=== PATIENT | female | born 1955 | race Hispanic/Latino ===

== ENCOUNTER → 2018-08-13 | Day surgery (SDC) | payer OTHER ==
[~2018-08-13] MED LIST: AUGMENTIN 875-1 EACH PO; B&O 60MG R/S 60 MG SUPP PR ONE; CEFTRIAXONE SOD 1 GM/NS 50 ML 50 ML IV ONE; DEXAMETHASONE SOD PHOS INJ 4 MG/ML VIAL ONE; FENTANYL CITRATE/PF 100MCG/2 ML INJ ONE; IOPAMIDOL 610MG/1ML 300 MG/ML VIAL IV ONE; LIDOCAINE HCL 2% LOCAL INJ 5 ML SDV VIAL INJ ONE; LISINOPRIL10 MG PO; MACRODANTIN100 MG PO; MIDAZOLAM HCL 2 MG/2 ML VIAL ONE; ONDANSETRON HCL INJ 2MG/ML 2ML 2 MG/ML VIAL ONE; PANTOPRAZOLE SO40 MG PO; PRAVASTATIN SOD80 MG PO; PROPOFOL IV EMULSION 10 MG/ML 20 ML VIAL ONE; SERTRALINE HCL25 MG PO; SEVOFLURANE INHAL SOLN 250 ML PEN BTL ONE
--- OUTSIDE RECORDS SUMMARY | 2018-08-13 07:59 | XMS REPORT ---
Author [facility] Address Unknown Phone Unavailable Care Team Providers Care Grinder Dresser Name Role Phone Unavailable Unavailable Payers Payer Name Policy Type Policy Number Effective Date Expiration Date Problems This patient has no known problems. Allergies, Adverse Reactions, Alerts Allergy Name Allergy Type Status Severity Reaction(s) Onset Date Inactive Date Treating Clinician Comments No Known Allergies DA Active U 2018-05-17 00:00:00 Medications This patient has no known medications. Results Test Description Test Time Test Comments Text Results Atomic Results Result Comments - CT ABD PELVIS W/CONT 2018-05-17 19:08:00 Name: KATHYA BEE [facility] : 1955 Age/S: 62 / F [address] [place] [address] Blvd Unit #: [id number] Loc: [place] [address] Phys: Jada Chow DO Acct: [id number] Dis Date: Status: REG ER PHONE #: [phone] Exam Date: 05/17/2018 181 FAX #: [phone] Reason: hematuria and abdominal pain EXAMS: CPT CODE: [id number] CT ABD PELVIS W/CONT 92269 PROCEDURE: CT ABDOMEN AND PELVIS WITH CONTRAST INDICATION: Hematuria. Abdominal pain. COMPARISON: None. TECHNIQUE: Helical imaging was performed diaphragm through the symphysis with multiplanar reconstructions. IV CONTRAST: 100 mL Isovue- 300. GI CONTRAST: None CT imaging performed at this location utilizes radiation dose optimization techniques which include one or more of the following: -Automated exposure control -Adjustment of the mA and/or kV according to patient size -Use of iterative reconstruction technique CT Radiation Dose DLP 174.94 mGy-cm Limitations: Motion artifact limiting assessment of abdominal contents. FINDINGS: LOWER CHEST: Slight motion limited assessment. Calcified granuloma lingula. Lung bases are otherwise clear. LIVER: Motion limited assessment. Diminished attenuation with sparing adjacent to gallbladder fossa. No focal lesion. The portal venous system is patent. GALLBLADDER: Motion assessment without abnormality demonstrated. SPLEEN: Normal. PANCREAS: Normal. ADRENALS: Normal. KIDNEYS: Motion limited assessment. No urinary calculi. No hydronephrosis or perinephric edema. No suspicious renal masses. The renal veins are patent. BOWEL: Stomach is unremarkable. Motion assessment of bowel without acute abnormality demonstrated. Gas and fecal material scattered throughout colon. No pathologic wall thickening. APPENDIX: Normal. PAGE 1 Signed Report (CONTINUED) Name: KATHYA BEE [facility] : 1955 Age/S: 62 / F [address] [place], [place] [address]vd Unit #: [id number] Loc: [place] [address] Phys: Jada Chow DO Acct: [id number] Dis Date: Status: REG ER PHONE #: [phone] Exam Date: 05/17/20181815 FAX #: [phone] Reason: hematuria and abdominal pain EXAMS: CPT CODE: [id number] CT ABD PELVIS W/CONT 35981 <Continued> PERITONEUM: No free intraperitoneal fluid or air. RETROPERITONEUM: No adenopathy. Atherosclerosis aorta and branch vessels. No aneurysm. PELVIS: No pelvic mass. Urinary bladder is contracted with circumferential bladder wall thickening.. MUSCULOSKELETAL: Scoliosis. Multilevel degenerative changes spine. No acute skeletal abnormality. IMPRESSION: 1. Circumferential bladder wall thickening. Muscular hypertrophy and cystitis in the differential. 2. Diminished attenuation of liver compatible hepatic steatosis. SL: WR1-H at 1908 Reported and signed by: Manny Fernandez M.D. CC: Jada Chow DO Technologist:Janie Van RT(R) CTDI: DLP: Trnscb Date/Time: 05/17/2018 (1907) Flores Orig Print D/T: S: 05/17/2018 (1910) CTDI: DLP: PAGE 2 Signed Report PROTHROMBIN TIME 2018-05-17 17:36:00 PROTHROMBIN TIME PATIENT (test code=PTP) 11.5 SECONDS 9.3-12.9 INTERNATIONAL NORMAL RATIO (test code=INR) 1.0 0.8-1.2 TARGET INR BY INDICATION Indication INR1. Prophylaxis of venous thrombosis 2.0 - 3.0 (orthopedic surgery), Prophylaxis of venous thrombosis (other than high-risk surgery), Treatment of Deep Vein Thrombosis/Pulmonary Embolism, Prevention of systemic embolism - Tissue heart valves, Acute Myocardial Infarction (to prevent systemic embolism), Valvular heart disease, Atrial Fibrillation, Bileaflet mechanical valve in aortic position.2. Mechanical prosthetic valves (high risk), 2.5 - 3.5 Presence of Lupus Anticoagulant or Antiphospholipid Antibodies, Prevention of systemic embolism - Acute Myocardial Infarction (to prevent recurrent infarct). COMPREHENSIVE METABOLIC [id number] 17:32:00* Test Item Value Reference Range Comments SODIUM (test code=NA) 139 mEq/L 134-147 POTASSIUM (test code=K) 3.5 mEq/L 3.4-5.0 CHLORIDE (test code=CL) 106 mEq/L 100-108 CARBON DIOXIDE (test code=CO2) 29 mEq/L 21-33 ANION GAP (test code=GAP) 8 0-20 GLUCOSE (test code=GLU) 90 mg/dL 70-110 BLOOD UREA NITROGEN (test code=BUN) 14 mg/dL 7-18 GLOMERULAR FILTRATION RATE (test code=GFR) 55.8 80-90 Units of measure=ml/min/1.73 m2 CREATININE (test code=CREAT) 1.0 mg/dL 0.6-1.3 TOTAL PROTEIN (test code=PROT) 8.5 g/dL 6.4-8.2 ALBUMIN (test code=ALB) 4.40 g/dL 3.4-5.0 CALCIUM (test code=CA) 9.1 mg/dL 8.0-10.5 BILIRUBIN TOTAL (test code=BILT) 0.60 mg/dL 0.0-1.0 SGOT/AST (test code=AST) 29 IUnit/L 15-37 SGPT/ALT (test code=ALT) 57 IUnit/L 15-65 ALKALINE PHOSPHATASE TOTAL (test code=ALKP) 128 IUnit/L 20-125 [id number] 17:32:00* Test Item Value Reference Range Comments LIPASE (test code=LIP) 322 IUnit/L 73-393 [id number] 17:32:00* Test Item Value Reference Range Comments TROPONIN-I (test code=TROPI) < 0.015 ng/mL 0.000-0.045 Negative: <=0.045 Positive: >=0.046 Correlation with serial results, other cardiac markers andclinical findings is necessary to determine the clinicalsignificance of this result. Results using different methodologies should not be comparedto one another as quantitative results may vary by method. CBC W/AUTO [id number] 17:24:00* Test Item Value Reference Range Comments WHITE BLOOD CELL (test code=WBC) 12.55 x10 3/uL 4.5-11.0 RED BLOOD CELL (test code=RBC) 4.40 x10 6/uL 3.54-5.02 HEMOGLOBIN (test code=HGB) 14.6 g/dL 11.0-15.0 HEMATOCRIT (test code=HCT) 42.2 % 33.0-45.0 MEAN CELL VOLUME (test code=MCV) 95.9 fL 81.0-99.0 MEAN CELL HGB (test code=MCH) 33.2 pg 27.0-33.0 MEAN CELL HGB CONCETRATION (test code=MCHC) 34.6 g/dL 33.0-37.0 RED CELL DISTRIBUTION WIDTH CV (test code=RDW) 11.9 % 11.5-14.5 RED CELL DISTRIBUTION WIDTH SD (test code=RDW-SD) 41.6 fL 37.0-54.0 PLATELET COUNT (test code=PLT) 174 x10 3/uL 150-400 MEAN PLATELET VOLUME (test code=MPV) 11.9 fL 7.0-9.0 NEUTROPHIL % (test code=NT%) 76.4 % 56.0-77.0 IMMATURE GRANULOCYTE % (test code=IG%) 0.3 % 0.0-2.0 LYMPHOCYTE % (test code=LY%) 14.4 % 14.0-32.0 MONOCYTE % (test code=MO%) 8.0 % 4.8-9.0 EOSINOPHIL % (test code=EO%) 0.6 % 0.3-3.7 BASOPHIL % (test code=BA%) 0.3 % 0.0-2.0 NUCLEATED RBC % (test code=NRBC%) 0.0 % 0-0 NEUTROPHIL # (test code=NT#) 9.58 x10 3/uL 2.0-7.6 IMMATURE GRANULOCYTE # (test code=IG#) 0.04 x10 3/uL 0.00-0.03 LYMPHOCYTE # (test code=LY#) 1.81 x10 3/uL 1.0-3.8 MONOCYTE # (test code=MO#) 1.01 x10 3/uL 0.1-0.8 EOSINOPHIL # (test code=EO#) 0.07 x10 3/uL 0.0-0.2 BASOPHIL # (test code=BA#) 0.04 x10 3/uL 0.0-0.2 NUCLEATED RBC # (test code=NRBC#) 0.00 x10 3/uL 0.0-0.1 MANUAL DIFF REQUIRED (test code=MDIFF) NO URINALYSIS [id number] 16:41:00* Test Item Value Reference Range Comments UA COLOR (test code=COLU) RED YEL/STRAW UA APPEARANCE (test code=APPU) CLOUDY CLEAR UA GLUCOSE DIPSTICK (test code=DGLUU) 3+ NEGATIVE UA BILIRUBIN DIPSTICK (test code=BILU) NEGATIVE NEGATIVE UA KETONE DIPSTICK (test code=KETU) NEGATIVE NEGATIVE UA SPECIFIC GRAVITY (test code=SGU) 1.012 1.005-1.030 UA BLOOD DIPSTICK (test code=BO) 3+ NEGATIVE UA PH DIPSTICK (test code=JOSE ALBERTO) 7.0 5.0-7.0 UA PROTEIN DIPSTICK (test code=PROU) 2+ NEGATIVE UA UROBILINIOGEN DIPSTICK (test code=URO) 0.2 mg/dL 0.2-1.0 UA NITRITE DIPSTICK (test code=YOLA) NEGATIVE NEGATIVE UA LEUKOCYTE ESTERASE DIPSTICK (test code=LEUU) 3+ NEGATIVE UA WBC (test code=WBCU) >50 WBC/HPF 0-3 UA RBC (test code=RBCU) >50 RBC/HPF 0-3 UA BACTERIA (test code=BACU) NONE SEEN /HPF NONE SEEN UA SQUAMOUS CELLS (test code=SQU) NONE SEEN /HPF NONE SEEN COMMENTS: Clean Catch- XR CHEST 1 [id number] 15:59:00 FAX: Jada Yanez DO [phone] [place]: St: PRE Name: KATHYA HAMILTON [facility] : [birth year] Age/S: 62/F [address] [place] [address] Unit #: [id number] Loc: [place] [address] Phys: Jada Chow DO Acct: [id number] Dis Date: Status: PRE ER PHONE #: [phone] Exam Date: 05/17/2018 1547 FAX #: [phone] Reason: Abdominal Pain EXAMS: CPT CODE: [id number] XR CHEST 1 V 58761 1 VIEW CXR H ISTORY: Abdominal pain. COMPARISON: None. The lungs are clear with normal pulmonary vasculature. Cardiomediastinal silhouette normal. No pleural abnormality. Thoracolumbar scoliosis. Bony otherwise thorax intact. IMPRESSION: No acute process evident. END OF IMPRESSION SL: [id number] E lectronically Signed by Dann Christopher on 09/2018 at 5182 Reported and signed by: Lucius Christopher M.D. CC: Jada Chow DO Technologist: RT Fede(R) Trnscrd Date/Time/By: 05/17/2018 (9900) : By: Jaiden Orig Print D/T: S: 05/17/2018 (6082) PAGE 1 Signed Report
--- OUTSIDE RECORDS SUMMARY | 2018-08-13 07:59 | XMS REPORT | Summary of Care ---
Author Author Ana Gregorio M.A. Unknown Address [facility] Phone Unavailable Care Team Providers Care Can Handler Name Role Phone LESLY CANO M.D. Unavailable Unavailable SOLOMON RING DO Unavailable Unavailable Unavailable Unavailable Functional Status Name Dates Details Functional status health issues are not documented Status: Name Dates Details Cognitive status health issues are not documented Status: Problems Name Dates Details Palpitations (785.1, R00.2) Status: Active Chest pain (786.50, R07.9) Status: Active Hyperlipidemia (272.4, E78.5) Status: Active Hypertension (401.9, I10) Status: Active Cardiac murmur (785.2, R01.1) Status: Active Medications Name Dates Details Lisinopril 20 MG Oral Tablet TAKE 1 TABLET EVERY MORNING Quantity: 30 JUDIT MERCDEES M.D., LESLY * Start : 10-Jun-2016 Active Rosuvastatin Calcium 10 MG Oral Tablet TAKE 1 TABLET BEDTIME * Quantity: 30 Refills: 1 JUDIT MERCEDES M.D., LESLY * Start : 27-Jun-2016 Active Metoprolol Succinate ER 25 MG Oral Tablet Extended Release 24 Hour TAKE 1 TABLET BEDTIME * Quantity: 30 Refills: 3 JUDIT MERCEDES M.D., LESLY * Start : 22-Jul-2016 Active Allergies and Adverse Reactions Name Dates Details No Known Drug Allergies (Allergy) Status: Active Past Medical History Name Dates Details Hypertension (401.9, I10) Status: Active Procedures Procedure Dates Details History of hernia repair Completed Immunization Name Dates Details Immunizations not documented Family History Name Dates Details Family history of hypertension (V17.49, Z82.49) Comments: Family History Status: Active Name Dates Details Family history of cerebrovascular accident (CVA) (V17.1, Z82.3) Status: Active Social History Name Dates Details Unknown if ever smoked Vital Signs Date Test Result Details No Known Vitals to report Results Date Description Value Details Results not documented Plan of Care Name Dates Details Planned Observations Planned Goals not documented Planned Encounters Appointment; LESLY CANO M.D. On: 14-Jan-2017 15:00 Interventions Provided Plan* HTN * - Not at target, but she as a cold and refers feeling tired. Will wait for it to clear to adjust if needed * - Continue lisinopril + Tprol XL 25mg PO qhs * - Low salt diet * - BP log at home * HLD * - Continue crestor 10mg PO qhs * - Low fat diet * PALPITATIONS * - ECG today normal. * - No evidence of arrhythmias on event monitor. WIll continue to follow. * - Toprol XL started as above * CAD * - Non occlusive, normal MIBI 08/25 * - Medical Rx optimization * CHRONIC VENOUS INSUFFICIENCY * - Start compression stockings. * - Venous US for reflux evaluation * RTC with results 2 months Discussion/Summary* Clinical cardiac findings reviewed and discussed * EKG reviewed and discussed * Nuclear and echocardiogram reviewed and discussed Instructions Name Dates Details Instructions not documented Encounters Appointment; ROSALIE SPENCE M.D. Encounter Diagnosis: Problem not documented On: 24-Dec-2015 15:30 Appointment; LESLY CANO M.D. Encounter Diagnosis: Problem not documented On: 10-Jun-2016 10:00 Appointment; LESLY CANO M.D. Encounter Diagnosis: Problem not documented On: 22-Jul-2016 9:15 Appointment; LESLY CANO M.D. Encounter Diagnosis: Problem not documented On: 22-Jul-2016 9:20 Appointment; SE, ECHO Encounter Diagnosis: Problem not documented On: 30-Jul-2016 10:00 Appointment; LESLY CANO M.D. Encounter Diagnosis: Problem not documented On: 20-Aug-2016 10:30 Appointment; SE, ECHO Encounter Diagnosis: Problem not documented On: 20-Aug-2016 11:00 Appointment; SE, NUCLEAR Encounter Diagnosis: Problem not documented On: 02-Sep-2016 8:00 Appointment; LESLY CANO M.D. Encounter Diagnosis: Problem not documented On: 09-Sep-2016 8:45 Appointment; LESLY CANO M.D. Encounter Diagnosis: Problem not documented On: 09-Sep-2016 9:00 Appointment; LESLY CANO M.D. Encounter Diagnosis: Problem not documented On: 17-Nov-2016 14:30 Appointment; LESLY CANO M.D. Encounter Diagnosis: Problem not documented On: 14-Jan-2017 15:00
[2018-08-13 11:30] VITALS: BP 165/78
--- NOTE | 2018-08-13 17:03 | Operative Report ---
DATE OF PROCEDURE: 08/13/2018 SURGEON: Carlos Britt MD PREOPERATIVE DIAGNOSES: 1. Gross hematuria. 2. Urinary tract infections. 3. Mixed type urinary incontinence. POSTOPERATIVE DIAGNOSES: 1. Severe urethral stenosis. 2. Gross hematuria. 3. Urinary tract infections. 4. Mixed type urinary incontinence. 5. Grade 1 cystocele. 6. Grade 2 rectocele. 7. Urethral hypermobility. 8. Atrophic (female) vaginitis. OPERATION PERFORMED: 1. Cystourethroscopy with calibration and dilation of urethral stenosis (separate procedure performed for the diagnosis of urethral stenosis). 2. Cystourethroscopy with bilateral ureteral catheterization and retrograde ureteropyelography (separate procedure performed for hematuria and urinary tract infections). 3. Interpretation of retrograde ureteropyelography. 4. Supervision of fluoroscopy, no radiologist present. 5. Pelvic examination under anesthesia. ANESTHESIA: General. COMPLICATIONS: None. CLINICAL SUMMARY: Mary Jane Ignacio is a 62-year-old woman with hematuria and urinary tract infection. She is brought for evaluation. She is aware of the risks of bleeding, infection, injury to adjacent structures, need for additional procedures and elected to proceed. OPERATIVE PROCEDURE IN DETAIL: Informed consent was verified. Mary Jane Ignacio was properly identified, taken to the operating room, placed on the cystoscopy table in supine position. Anesthesia was uneventfully begun. The patient was then carefully gently repositioned in dorsal lithotomy position. All pressure points were well padded. Her genitalia were prepared and draped in usual sterile fashion. A 22.5-Welsh cystoscope sheath with obturator in place could not be placed in the patient's urethral meatus due to urethral stenosis. We calibrated this obstruction approximately 12-Welsh in size and progressively dilated to 30-Welsh in size with minimal bleeding encountered. The cystoscope sheath was then easily placed into the patient's urethra and bladder was drained. Panendoscopy revealed grade 1-2 trabeculations, but no tumors, no stones, no diverticula, and normally positioned and configured ureteral orifices were identified. An 8-Welsh catheter was used to cannulate each ureter and retrograde ureteropyelogram was performed. Interpretation of retrograde ureteropyelography contrast was instilled in retrograde fashion bilaterally. There were no tumors, no stones, and no diverticula. Unobstructed drainage was observed bilaterally fluoroscopically. The patient's bladder was drained. The cystoscope was withdrawn. Pelvic examination under anesthesia revealed grade 1 cystocele with urethral hypermobility, grade 2 rectocele, and atrophic (female) vaginitis. No abnormal palpable pelvic masses could be appreciated. There was no significant uterine prolapse. The patient was then uneventfully reversed from anesthesia and taken to recovery room in stable condition. Exclusive postoperative instructions were given. We will follow the patient up in the office for urodynamic study to evaluate her what we believed to be is an overactive bladder. Carlos MD RENNY Britt/ARMINDA /[id number]
== END | disposition home or self-care (01) ==
LOC: OR 07:56
PROVIDERS: ATTEND Urology
DX: N35.92 Unspecified urethral stricture, female (principal); N39.0 Urinary tract infection, site not specified; N39.46 Mixed incontinence; N81.10 Cystocele, unspecified; N81.6 Rectocele; N36.41 Hypermobility of urethra; N95.2 Postmenopausal atrophic vaginitis; N32.81 Overactive bladder; N32.89 Other specified disorders of bladder; R39.14 Feeling of incomplete bladder emptying; R35.1 Nocturia; I10 Essential (primary) hypertension; E66.9 Obesity, unspecified; Z01.810 Encounter for preprocedural cardiovascular examination; Z79.82 Long term (current) use of aspirin
CPT/HCPCS: 52281; 74420; 93005; C1758; J0696; J1100; J2001; J2250; J2405; J2704; Q9967; J3010